=== PATIENT | male | born 1945 | race Caucasian/White ===

== ENCOUNTER 2017-03-26 18:00 | Emergency (ER) | payer MEDICARE ==
[~2017-03-26] VITALS: Ht 170.2 cm; Wt 81.0 kg
[~2017-03-26 18:00] MED LIST: AMLO10TA2 PO; AMLODIPINE; CHOL200074 PO; CYAN1TAB29 PO; GLUC-121 PO; LANS30CA PO; LEGATRIN PM PO; Legatrin PO; MULT-516 PO; NAPR220T77 PO
[2017-03-26] MEDS ORDERED: HYDROcodone/APAP 5/325 TABLET PO PRN (19:00)
[2017-03-26] MEDS ORDERED: HYDROcodone/APAP 5/325 TABLET ONE (19:23)
[2017-03-26 19:40] VITALS: BP 175/93
== END 2017-03-26 19:43 | disposition home or self-care (01) ==
LOC: ED 19:37
DX: S52.502A Unspecified fracture of the lower end of left radius, initial encounter for closed fracture (principal); S52.615A Nondisplaced fracture of left ulna styloid process, initial encounter for closed fracture; G89.11 Acute pain due to trauma; W01.0XXA Fall on same level from slipping, tripping and stumbling without subsequent striking against object, initial encounter; Y93.01 Activity, walking, marching and hiking; Y92.009 Unspecified place in unspecified non-institutional (private) residence as the place of occurrence of the external cause; Y99.8 Other external cause status
CPT/HCPCS: 29125; 99284